=== PATIENT | male | born 1940 | race Hispanic/Latino ===

== ENCOUNTER 2022-05-09 14:35 | Emergency (ER) | payer MEDICARE, BC ==
[2022-05-09] MEDS ORDERED: Boostrix 0.5 ML (Tdap) VIAL (>/=7 yrs of age) ONE ×2 (15:27→15:32)
[2022-05-09] MEDS ORDERED: Acetaminophen 500 MG TAB ONE (15:27)
[2022-05-09] MEDS ORDERED: Bacitracin 1 PK ONE (15:27)
[2022-05-09] MEDS ORDERED: Lidocaine 2% PF 5 ML VIAL ONE (15:27)
[2022-05-09] MEDS ORDERED: Cephalexin 250 MG CAP ONE (16:54)
== END 2022-05-09 16:57 | disposition home or self-care (01) ==
LOC: BURERS 14:35
DX: S61.412A Laceration without foreign body of left hand, initial encounter (principal); E11.9 Type 2 diabetes mellitus without complications; I10 Essential (primary) hypertension; X58.XXXA Exposure to other specified factors, initial encounter
CPT/HCPCS: 12002; 90471; 90715; J2001

== ENCOUNTER 2022-05-24 10:44 | Emergency (ER) | payer MEDICARE, BC | END 2022-05-24 11:26 | disposition home or self-care (01) | LOC: BURERS 10:44 | DX: S61.412D Laceration without foreign body of left hand, subsequent encounter (principal); I10 Essential (primary) hypertension; E11.9 Type 2 diabetes mellitus without complications; X58.XXXD Exposure to other specified factors, subsequent encounter ==